=== PATIENT | female | born 1965 | race Caucasian/White ===

== ENCOUNTER 2018-11-26 18:29 | Emergency (ER) | payer MEDICARE, MEDICAID ==
[~2018-11-26] VITALS: Ht 160 cm; Wt 97.6 kg
[~2018-11-26 18:29] MED LIST: ALBUTEROL S5 MG/1 ML IH; ATIVAN0.5 MG PO; CLONIDINE HCL0.1 M1 PO; DOXYCYCLINE HY100 M1 PO; DULOXETINE HCL30 MG PO; FEXOFENADINE H180 MG PO; FLEXERIL10 MG PO; FLONASE2 SPRAY NS; FUROSEMIDE20 MG PO; GABAPENTIN300 MG PO; HYDROCHLOROTHIA25 MG PO; HYDROCODON-ACE1 EAC8 PO; IBUPROFEN800 MG PO; IMITREX25 MG PO; LACTULOSE10 GM/151 PO; LOSARTAN POTASS50 MG PO; MAG-OXIDE400 MG PO; METFORMIN HCL500 MG PO; MICRO-K10 MEQ PO; MOVANTIK25 MG PO; MULTIVITAMINS1 EAC8 PO; NORCO 5-325 TA1 EACH PO; PREDNISONE20 MG PO; PRILOSEC20 MG PO; PROAIR HFA8.5 GM INH; PROMETHAZINE HC25 M1 PO; QVAR7.3 G1 IH; SYNTHROID100 MCG PO; TOVIAZ4 MG PO; TRAZODONE HCL100 MG PO; VENTOLIN HFA18 GM IH; VITAMIN D32000 UNI1 PO; VYVANSE50 MG PO; ZOVIRAX30 GM TP
[2018-11-26] MEDS ORDERED: HYDROCODON-ACE1 EAC8 PO (18:37)
[2018-11-26] MEDS ORDERED: METHYLPREDNISOLO4 M1 PO (18:50)
[2018-11-26] MEDS ORDERED: BACLOFEN10 MG PO (18:50)
== END 2018-11-26 19:30 | disposition home or self-care (01) ==
LOC: ED 18:29
DX: M99.01 Segmental and somatic dysfunction of cervical region (principal); J45.909 Unspecified asthma, uncomplicated; E11.9 Type 2 diabetes mellitus without complications; K21.9 Gastro-esophageal reflux disease without esophagitis; E03.9 Hypothyroidism, unspecified; Z87.891 Personal history of nicotine dependence; Z90.49 Acquired absence of other specified parts of digestive tract; Z91.041 Radiographic dye allergy status; Z79.899 Other long term (current) drug therapy
CPT/HCPCS: 96372; 99283-25; J1885

== ENCOUNTER 2019-07-22 17:51 | Emergency (ER) | payer MEDICARE, MEDICAID ==
[~2019-07-22] VITALS: Ht 160 cm; Wt 101.3 kg
[~2019-07-22 17:51] MED LIST changes: +ADDERALL 15 MG15 MG PO; +BACLOFEN10 MG PO; +BUPROPION HCL100 MG PO; +CYMBALTA30 MG PO; +GLUCOPHAGE500 MG PO; +JANUVIA100 MG PO; +METHYLPREDNISOLO4 M1 PO; +MONTELUKAST SOD10 MG PO; +OMEPRAZOLE20 MG PO; +TRAMADOL HCL50 MG PO
--- OUTSIDE RECORDS SUMMARY | 2019-07-22 17:54 | XMS ---
PreManage Notification: FAIZAN TRAMMELL Security Timekeeper Events No recent Security Events currently on file CRITERIA MET - [facility] CARE PROVIDERS BRIANNA Pal Nurse Practitioner: 10/05/2018-Current PHONE: Unknown Ritchie Tang Current PHONE: Unknown Raj has no Care Guidelines for this patient. Nayely VISIT COUNT (12 MO.) Iris Dickerson TOTAL 3 NOTE: Visits indicate total known visits. ED/UCC VISIT TRACKING (12 MO.) 07/22/2019 17:52 [facility] TYPE: Emergency COMPLAINT: - SOB 11/26/2018 18:29 [facility] TYPE: Emergency COMPLAINT: - NECK PAIN NON INJURY DIAGNOSES: - Personal history of nicotine dependence - Other group home (current) drug therapy - Hypothyroidism, unspecified - Type 2 diabetes mellitus without complications - Radiographic dye allergy status - Acquired absence of other specified parts of digestive tract - Unspecified asthma, uncomplicated - Gastro-esophageal reflux disease without esophagitis - Segmental and somatic dysfunction of cervical region - Cervicalgia 10/01/2018 18:[address] 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
[2019-07-22] MEDS ORDERED: CENTRUM SILVER1 EAC5 PO (18:22)
[2019-07-22] MEDS ORDERED: VITAMIN B122500 MCG PO (18:27)
[2019-07-22] MEDS ORDERED: IPRAT-ALBUT 0.5-3 ML INH (20:03)
[2019-07-22] MEDS ORDERED: PREDNISONE20 MG PO (20:03)
[2019-07-22] MEDS ORDERED: AZITHROMYCIN250 MG PO (20:03)
[2019-07-22] MEDS ORDERED: MICRO AIR1 EACH MISC (20:04)
== END 2019-07-22 20:17 | disposition home or self-care (01) ==
LOC: ED 17:51
DX: J45.901 Unspecified asthma with (acute) exacerbation (principal); E11.9 Type 2 diabetes mellitus without complications; K21.9 Gastro-esophageal reflux disease without esophagitis; E03.9 Hypothyroidism, unspecified; Z87.891 Personal history of nicotine dependence; Z91.041 Radiographic dye allergy status; Z79.84 Long term (current) use of oral hypoglycemic drugs; Z79.899 Other long term (current) drug therapy
CPT/HCPCS: 94640; 99284

== ENCOUNTER 2019-07-24 11:41 | Emergency (ER) | payer MEDICARE, MEDICAID ==
[~2019-07-24] VITALS: Ht 160 cm; Wt 99.9 kg
[~2019-07-24 11:41] MED LIST changes: +AZITHROMYCIN250 MG PO; +CENTRUM SILVER1 EAC5 PO; +IPRAT-ALBUT 0.5-3 ML INH; +MICRO AIR1 EACH MISC; +VITAMIN B122500 MCG PO
--- OUTSIDE RECORDS SUMMARY | 2019-07-24 11:44 | XMS ---
PreManage Notification: FAIZAN TRAMMELL Security Raisin Washer Events No recent Security Events currently on file CRITERIA MET - [facility] - [facility] - 2 Visits in 30 Days CARE PROVIDERS BRIANNA Pal Nurse Practitioner: 10/05/2018-Current PHONE: Unknown Ritchie Tang Current PHONE: Unknown Raj has no Care Guidelines for this patient. Nayely VISIT COUNT (12 MO.) [address] [place] [address] TOTAL 4 NOTE: Visits indicate total known visits. ED/UCC VISIT TRACKING (12 MO.) 07/24/2019 11:41 [facility] TYPE: Emergency COMPLAINT: - SOB 07/22/2019 17:52 [facility] TYPE: Emergency COMPLAINT: - SOB 11/26/2018 18:29 [facility] TYPE: Emergency COMPLAINT: - NECK PAIN NON INJURY DIAGNOSES: - Personal history of nicotine dependence - Other care home (current) drug therapy - Hypothyroidism, unspecified - Type 2 diabetes mellitus without complications - Radiographic dye allergy status - Acquired absence of other specified parts of digestive tract - Unspecified asthma, uncomplicated - Gastro-esophageal reflux disease without esophagitis - Segmental and somatic dysfunction of cervical region - Cervicalgia 10/01/2018 18:15 [facility] TYPE: Emergency COMPLAINT: - HEAD PAIN DIAGNOSES: - Gastro-esophageal reflux disease without esophagitis - Other care home (current) drug therapy - Headache - Personal history of nicotine dependence - Hypothyroidism, unspecified - Type 2 diabetes mellitus without complications - Radiographic dye allergy status INPATIENT VISIT TRACKING (12 MO.) No inpatient visits to display in this time frame [id number]
[2019-07-24] MEDS ORDERED: PROPRANOLOL HCL20 MG PO (11:56)
[2019-07-24] MEDS ORDERED: SIMVASTATIN10 MG PO (11:56)
--- NOTE | 2019-07-24 20:42 | EKG ---
[facility] [address] [place] [address] Signed Normal sinus rhythm Normal ECG No previous ECGs available Confirmed by GERHARD BAKER MD ([id number]) on 07/24/2019 8:42:35 PM Electronically Signed By: GERHARD BAKER MD 07/24/19 2042 PATIENT NAME: FAIZAN TRAMMELL Electrocardiogram DATE OF : 61 PHYSICIAN: GERHARD BAKER MD REPORT #: [id number] REPORT IS CONFIDENTIAL AND NOT TO BE RELEASED WITHOUT AUTHORIZATION
== END 2019-07-24 13:23 | disposition home or self-care (01) ==
LOC: ED 11:41
DX: R06.02 Shortness of breath (principal); J45.909 Unspecified asthma, uncomplicated; E11.9 Type 2 diabetes mellitus without complications; K21.9 Gastro-esophageal reflux disease without esophagitis; E03.9 Hypothyroidism, unspecified; Z87.891 Personal history of nicotine dependence; Z91.041 Radiographic dye allergy status; Z79.52 Long term (current) use of systemic steroids; Z79.899 Other long term (current) drug therapy
CPT/HCPCS: 71045; 80053; 83735; 83880; 84484; 85025; 93005; 93010; 94640; 99285-25

== ENCOUNTER 2021-09-29 10:54 | Emergency (ER) | payer MEDICARE, MEDICAID ==
[~2021-09-29] VITALS: Ht 160 cm; Wt 99.9 kg
[~2021-09-29 10:54] MED LIST changes: +PROPRANOLOL HCL20 MG PO; +SIMVASTATIN10 MG PO
--- OUTSIDE RECORDS SUMMARY | 2021-09-29 10:58 | XMS ---
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 EDesiree VISIT COUNT (12 MO.) Ankit Dickerson TOTAL 1 NOTE: Visits indicate total known visits. ED/UCC VISIT TRACKING (12 MO.) 09/29/2021 10:[address] [facility] [place] TYPE: Emergency COMPLAINT: - CHEST PAIN, TIRED, DIZZY INPATIENT VISIT TRACKING (12 MO.) No inpatient visits to display in this time frame [id number]
[2021-09-29] MEDS ORDERED: ACYCLOVIR15 GM TOP (11:06)
[2021-09-29] MEDS ORDERED: VENTOLIN HFA18 GM INH (11:07)
[2021-09-29] MEDS ORDERED: CLONIDINE HCL0.1 MG PO (11:08)
[2021-09-29] MEDS ORDERED: CELEBREX200 MG PO (11:08)
[2021-09-29] MEDS ORDERED: GEODON80 MG NG (11:11)
--- NOTE | 2021-09-30 04:58 | EKG ---
[facility] [address] [facility] [facility] [place], [place] [address] Signed Normal sinus rhythm Normal ECG When compared with ECG of 24-JUL-2019 11:51, No significant change was found Confirmed by FILIBERTO MALIK MD ([id number]) on 09/30/2021 4:58:17 AM Electronically Signed By: FILIBERTO MALIK MD 09/30/21 0458 PATIENT NAME: JPFAIZANBrady DENTON Electrocardiogram DATE OF : 61 PHYSICIAN: FILIBERTO MALIK MD REPORT #: [id number] REPORT IS CONFIDENTIAL AND NOT TO BE RELEASED WITHOUT AUTHORIZATION
== END 2021-09-29 12:29 | disposition home or self-care (01) ==
LOC: ED 10:54
DX: R07.2 Precordial pain (principal); R42 Dizziness and giddiness; R11.0 Nausea; I50.9 Heart failure, unspecified; E11.9 Type 2 diabetes mellitus without complications; K21.9 Gastro-esophageal reflux disease without esophagitis; E03.9 Hypothyroidism, unspecified; J44.9 Chronic obstructive pulmonary disease, unspecified; Z87.891 Personal history of nicotine dependence; Z90.89 Acquired absence of other organs; Z90.49 Acquired absence of other specified parts of digestive tract; Z91.048 Other nonmedicinal substance allergy status; Z79.52 Long term (current) use of systemic steroids; Z79.899 Other long term (current) drug therapy; Z79.84 Long term (current) use of oral hypoglycemic drugs
CPT/HCPCS: 80053; 83690; 84484; 85025; 93005; 93010; 99285-25